=== PATIENT | female | born 1950 | race Caucasian/White ===

== ENCOUNTER 2025-06-30 06:12 | Day surgery (SDC) | payer MEDICARE, BC, SELFPAY ==
[2025-06-30] VITALS (26 sets, daily range): BP systolic 98–150; BP diastolic 49–75; PULSE 66–92; RESP 12–24; TEMP 36.4–37.2; O2SAT 90–99; BMI 23.1
[2025-06-30] MEDS: CELECOXIB 200 MG CAPSULE PO (06:45)
[2025-06-30] MEDS: ACETAMINOPHEN 500 MG TABLET 1000 MG PO ×3 (06:45→20:11)
[2025-06-30] MEDS: SODIUM CHLORIDE 0.9 % (FLUSH) 10 ML SYRINGE IVF (06:45)
[2025-06-30] MEDS: LACTATED RINGERS 1000 ML 1,000 ML 100 ML IV ×2 (06:45→10:00)
[2025-06-30] MEDS: MIDAZOLAM HCL 1 MG/ML inj IVP (07:08)
--- NOTE | 2025-06-30 07:12 | SUR.PREOP ---
TIME?OUT:?0707 PT/RN/MDA?VERIFICATION?OF?SURGICAL?SITE,?PROCEDURE,?AND?CONSENT OBTAINED?PRIOR?TO?INVASIVE?PROCEDURE.
[2025-06-30] MEDS: TRANEXAMIC ACID 100 MG/ML INJ 1000 MG IV (07:42)
--- NOTE | 2025-06-30 09:15 | CRLHL7_ITS ---
For Patients: As a result of the Cures Act, medical imaging exams and procedure reports are released immediately into your electronic medical record. You may view this report before your referring provider. If you have questions, please contact your health care provider. Indication: post op right TSA Technique: Two views right shoulder Findings/Impression: Hardware from a right shoulder arthroplasty is in satisfactory position. Bone alignment is normal. No sign of acute fracture. Postop changes are within normal limits. Dictated by Salazar Sosa MD @ 07/01/2025 12:23:03 PM (Electronically Signed)
--- NOTE | 2025-06-30 09:18 | P.ORPRC_ITS ---
Procedure Note Date of procedure: 06/30/25 Procedure: PREOPERATIVE DIAGNOSIS: Right shoulder rotator cuff tear arthropathy POSTOPERATIVE DIAGNOSIS: Right shoulder rotator cuff tear arthropathy NAME OF OPERATION: Right upper extremity reverse shoulder arthroplasty, biceps tenodesis SURGEON: Ibrhaima Lerner MD TAPPING MACHINE OPERATOR: Rose Marie Mitchell PA-C ANESTHESIA: General endotracheal ESTIMATED BLOOD LOSS: 100 mL COMPLICATIONS: None SPECIMENS: None DRAINS: None PREOPERATIVE ANTIBIOTICS: Ancef 1 grams IMPLANTS: 1. Tornier 29 mm x 35 mm baseplate 2. 36mm standard glenosphere 3. 5B humeral stem 4. High eccentric +0 humeral tray 5. 36mm +9 polyethylene INDICATIONS: The patient is a 74-year-old with a longstanding history of severe, unrelenting right shoulder pain secondary to rotator cuff tear arthropathy. Despite appropriate nonoperative management, including activity modification, anti-inflammatories, tjqs-hll-[id number] pain medication, physical therapy, and injections they continue to have pain and disability. Operative intervention was offered. The risks, benefits and expected outcomes were discussed in detail. These included but were not limited to: Infection, bleeding, injury to blood vessel or nerve, venous thromboembolism. All questions were answered to their satisfaction. Use of an assistant professor of business was necessary throughout the case for patient positioning and safety, soft tissue retraction, and closure. PROCEDURE: General anesthesia was administered. The patient was placed in the lazy beach chair position on the operating room table. The right upper extremity was prepped and draped in the usual sterile fashion. A standard deltopectoral incision was made. Subcutaneous dissection was taken with electrocautery to the deltopectoral interval. The cephalic vein was mobilized, lateral branches were cauterized. The vein was taken medially with the pectoralis. We bluntly entered the deltopectoral interval. We freed up the deltoid. The upper 1/3 of the insertion of the pectoralis was divided with cautery. The static retractor was placed. The clavipectoral fascia and CA ligament were divided. The circumflex vessels were controlled with electrocautery. The biceps was dissected out of the bicipital groove, was tagged with a #2 FiberWire suture and divided proximally. A fiberWire suture was placed in the subscapularis. The subscap was subperiosteally elevated off of the lesser tuberosity. The humeral head was delivered into the wound. The intramedullary humeral cutting guide was placed. We made the cut at the anatomic neck, in 30? of retroversion. Humeral sounds were used to assess the diameter of the canal. The broach was placed and had good rotational stability. The calcar reamer was used and the protective base plate cover was placed. Attention was then turned to the glenoid. Hohmann retractors were placed p osteriorly. The labrum and biceps stump were sharply debrided. The origin of the inferior glenohumeral ligaments were subperiosteally released off of the glenoid. The drill guide was placed. The guide pin was placed in 0? of cephalic tilt. The reamer was used to bleeding bone. The central drill was used x2. The standard base plate was placed. This had excellent purchase. Locking screws x 2 were placed. The glenosphere was placed, the set screw was tightened. Attention then returned to the humerus. We placed a high eccentric standard base plate and standard poly. We reduced the shoulder and took it through a range of motion. It was found to be stable with appropriate soft tissue tension. Trial humeral components were removed. The biceps was tenodesed in the bicipital groove with drill holes and our previously placed FiberWire suture. We placed #2 FiberWire sutures in the lesser tuberosity for subsequent subscap repair. We assembled the humeral component on the back table. We placed it in the center of our subscapularis repair sutures and tapped it down to our humeral cut. This had excellent purchase. The shoulder was reduced and again was found to be stable with appropriate soft tissue tension. We did a 3 min dilute Betadine solution soak. We irrigated the wound with 3 L of normal saline via pulse lavage. We repaired the subscapularis to the lesser tuberosity with our previously placed FiberWire sutures. The deltopectoral interval was loosely reapproximated with an 0 Vicryl in an interrupted [id number] fashion. Subcutaneous tissues were closed with the 2-0 Vicryl and a running 3-0 Monocryl suture. The skin was sealed with glue. A dry dressing and sling were applied. Sponge and needle counts were correct x2. The patient tolerated the procedure well, there were no apparent complications. They were awakened and extubated in the operating room, taken to the postanesthesia care unit in satisfactory condition. PLAN: The patient will be mobilized with physical therapy. The sling will be used for 6 weeks postoperatively. Active range of motion in forward flexion and abduction as tolerates. No external rotation greater than 0? for 6 weeks postoperatively. They will be discharged to home once medically appropriate.
--- NOTE | 2025-06-30 10:06 | SUR.PHASEI ---
Patient came to PACU wearing sling. Patient denies pain and nausea. She is able to wiggle her fingers and feels touch.
--- NOTE | 2025-06-30 10:08 | SUR.PHASEI ---
Patient vitals signs stable throughout Phase I. She is awake and answering questions, declines ice chips when offered. Patient meets discharge criteria from PACU.
--- NOTE | 2025-06-30 10:13 | P.NB_ITS ---
Nerve Block Nerve Block Time Seen by Provider: 07:10 Date Seen: 06/30/25 Type of block requested by surgeon for post-operative analgesia: supraclavicular Side: right Time out performed: Yes Verification of patient name: Yes Verification of date of : Yes Site marking: site marked Name of person performing procedure: Demetrius Continuous monitoring Was continuous monitoring of O2 sat, B/P, color television console monitor, recorded every 15 minutes?: Yes Procedure Checklist: sterile prep, needles and gloves Ultrasound guided. Images saved: Yes Medications given in 5ml increments after negative aspiration: Marcaine %: 0.25 mL: 5 and Exparel mL: 10 Needle gauge: 22 Patient tolerated procedure well: Yes Block Charges Block Charge (with Pro Fee): Brachial Plexus Use of Ultrasound Machine for Block: Yes- US Guidance/pain block
--- NOTE | 2025-06-30 10:14 | P.ANES_ITS ---
Anesthesia Charges Start Date/Time Anesthesia Start Date: 06/30/25 Anesthesia Start Time: 07:18 Stop Date/Time Anesthesia Stop Date: 06/30/25 Anesthesia Stop Time: 09:40 Summary Extremes of Age - Over 70 or under 1: MDA Coding CPT Codes CPT Codes: ANESTH SHOULDER REPLACEMENT - 37201 ([id number]) P3 - PATIENT W/SEVERE SYS DISEASE, QK - CLOTH PRINTER HELPER 2-4 CNCRNT ANES PROC, QX - COLLEGE SPORTS COACH SVC W/ MD MED DIRECTION Additional Codes: Summary - Extremes of Age - Over 70 or under 1: MDA ([id number])
--- NOTE | 2025-06-30 10:14 | W.ANESCHARGE ---
Anesthesia Charges Start Date/Time Anesthesia Start Date: 06/30/25 Anesthesia Start Time: 07:18 Stop Date/Time Anesthesia Stop Date: 06/30/25 Anesthesia Stop Time: 09:40 Summary Extremes of Age - Over 70 or under 1: MDA Coding CPT Codes CPT Codes: ANESTH SHOULDER REPLACEMENT - 91423 ([id number]) P3 - PATIENT W/SEVERE SYS DISEASE, QK - CABLE TECHNICIAN 2-4 CNCRNT ANES PROC, QX - PREFORMING MACHINE OPERATOR SVC W/ MD MED DIRECTION Additional Codes: Summary - Extremes of Age - Over 70 or under 1: MDA ([id number])
--- NOTE | 2025-06-30 10:50 | P.ANES_ITS ---
Anesthesia Charges Start Date/Time Anesthesia Start Date: 06/30/25 Anesthesia Start Time: 07:18 Stop Date/Time Anesthesia Stop Date: 06/30/25 Anesthesia Stop Time: 09:40 Summary Extremes of Age - Over 70 or under 1: COMPUTER PROGRAMMER CHIEF Coding CPT Codes CPT Codes: ANESTH SHOULDER REPLACEMENT - 76673 ([id number]) P3 - PATIENT W/SEVERE SYS DISEASE, QX - COMPUTER PROGRAMMER CHIEF SVC W/ MD MED DIRECTION, QK - TAX LAWYER 2-4 CNCRNT ANES PROC Additional Codes: Summary - Extremes of Age - Over 70 or under 1: COMPUTER PROGRAMMER CHIEF ([id number])
--- NOTE | 2025-06-30 10:50 | W.ANESCHARGE ---
Anesthesia Charges Start Date/Time Anesthesia Start Date: 06/30/25 Anesthesia Start Time: 07:18 Stop Date/Time Anesthesia Stop Date: 06/30/25 Anesthesia Stop Time: 09:40 Summary Extremes of Age - Over 70 or under 1: TIP LENGTH CHECKER Coding CPT Codes CPT Codes: ANESTH SHOULDER REPLACEMENT - 89947 ([id number]) P3 - PATIENT W/SEVERE SYS DISEASE, QX - TIP LENGTH CHECKER SVC W/ MD MED DIRECTION, QK - FISCAL OFFICER 2-4 CNCRNT ANES PROC Additional Codes: Summary - Extremes of Age - Over 70 or under 1: TIP LENGTH CHECKER ([id number])
[2025-06-30] MEDS: CEFAZOLIN 1 GM in 0.9 % SODIUM CHLORIDE Mini-bag 100 ML IVPB ×2 (14:06→21:53)
[2025-06-30] MEDS: OMEPRAZOLE 20 MG CAPSULE DR 40 MG PO (17:55)
--- NOTE | 2025-06-30 18:13 | PC.NURSE ---
End of shift: Patient pleasant and cooperative. Patient vitally stable, lungs clear, BS WNL, IV running LR at 75. Patient denies pain, scheduled tylenol given. Patient's right arm is in a sling, shoulder dressing is C/D/I. Active ice used.Patient voided once and is up in chair for dinner. Patient tolerating regular diet.
--- NOTE | 2025-06-30 18:30 | P.IMCN_ITS ---
Date of Consult Patient: Jamie Patient Consult date: 06/30/25 Requesting Physician: Orthopedics Primary Care Provider: Mallorie Nam MD Consult Narrative Narrative: Saige Cerda is a 74 year old female admitted to the hospital for right shoulder arthroplasty. Procedure performed by Dr. Lerner today. He request consultation for management of medical problems. No operative complications. Estimated 100 mL blood loss. Postoperatively she reports feeling fine. She currently has an affective block and has a having no sensation in her right upper extremity. She has had relative hypotension when I see her with a blood pressure of 93/55 and 98/49. She did not have hypotension in the operating room. She does have hypertension but has not had her valsartan today. She had amlodipine last night. She does have a history of recurrent pulmonary embolism and is on chronic Xarelto 10 mg daily which was held for the last 3 days. She has had no previous problems with surgery, hemorrhage, adverse reaction to anesthesia. Preoperatively she was feeling well. No recent health concerns, illness or injury. Review of Systems Narrative: Negative review of systems. [facility] Medical History (Updated 06/30/25 @ 18:45 by Calos uBckley MD) Sacral neurostimulator in situ ?Z96.82 - Presence of neurostimulator (ICD-10) PONV (postoperative nausea and vomiting) ?R11.2 - Nausea with vomiting, unspecified (ICD-10) ?Z98.890 - Other specified postprocedural states (ICD-10) Adjustment disorder with depressed mood ?F43.21 - Adjustment disorder with depressed mood (ICD-10) Vivid dream ?R68.89 - Other general symptoms and signs (ICD-10) Diverticulosis ?K57.90 - Diverticulosis of intestine, part unspecified, without perforation or abscess without bleeding (ICD-10) Overactive bladder ?N32.81 - Overactive bladder (ICD-10) OLIMPIA (generalized anxiety disorder) ?F41.1 - Generalized anxiety disorder (ICD-10) Degenerative tear of glenoid labrum of right shoulder ?M24.111 - Other articular cartilage disorders, right shoulder (ICD-10) Tendonitis of left rotator cuff ?M75.82 - Other shoulder lesions, left shoulder (ICD-10) Arthritis of right glenohumeral joint ?M19.011 - Primary osteoarthritis, right shoulder (ICD-10) Atrophy of muscle of left thigh ?M62.552 - Muscle wasting and atrophy, not elsewhere classified, left thigh (ICD-10) Subacromial impingement of left shoulder ?M75.42 - Impingement syndrome of left shoulder (ICD-10) Tendinitis of right rotator cuff ?M75.81 - Other shoulder lesions, right shoulder (ICD-10) Primary osteoarthritis of both wrists ?M19.031 - Primary osteoarthritis, right wrist (ICD-10) ?M19.032 - Primary osteoarthritis, left wrist (ICD-10) Scoliosis of thoracic spine ?M41.9 - Scoliosis, unspecified (ICD-10) Personal history of colonic polyps ?Z86.0100 - Personal history of colon polyps, unspecified (ICD-10) Tongue thrusting ?K14.8 - Other diseases of tongue (ICD-10) Eosinophilic esophagitis ?K20.0 - Eosinophilic esophagitis (ICD-10) Subjective tinnitus ?H93.19 - Tinnitus, unspecified ear (ICD-10) Sensorineural hearing loss, bilateral ?H90.3 - Sensorineural hearing loss, bilateral (ICD-10) 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 in situ, unspecified (ICD-10) Chronic embolism and thrombosis of other specified deep vein of left lower extremity ?I82.592 - Chronic embolism and thrombosis of other specified deep vein of left lower extremity (ICD-10) DVT (deep venous thrombosis) ?I82.409 - Acute embolism and thrombosis of unspecified deep veins of unspecified lower extremity (ICD-10) Pulmonary embolism ?I26.99 - Other pulmonary embolism without acute cor pulmonale (ICD-10) Anxiety ?F41.9 - Anxiety disorder, unspecified (ICD-10) Osteoarthritis ?M19.90 - Unspecified osteoarthritis, unspecified site (ICD-10) Scoliosis ?M41.9 - Scoliosis, unspecified (ICD-10) Osteoporosis ?M81.0 - Age-related osteoporosis without current pathological fracture (ICD- 10) Urge incontinence of urine ?N39.41 - Urge incontinence (ICD-10) GERD (gastroesophageal reflux disease) ?K21.9 - Gastro-esophageal reflux disease without esophagitis (ICD-10) High blood pressure ?I10 - Essential (primary) hypertension (ICD-10) COPD (chronic obstructive pulmonary disease) ?J44.9 - Chronic obstructive pulmonary disease, unspecified (ICD-10) Surgical History (Updated 06/30/25 @ 18:42 by Calos Buckley MD) Status post replacement of right shoulder joint ?Z96.611 - Presence of right artificial shoulder joint (ICD-10) 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) ?Z96.642 - Presence of left artificial hip joint (ICD-10) H/O dilation and curettage ?Z98.890 - Other specified postprocedural states (ICD-10) History of cataract surgery ?Z98.49 - Cataract extraction status, unspecified eye (ICD-10) History of removal of breast implant ?Z98.86 - Personal history of breast implant removal (ICD-10) H/O breast augmentation ?Z98.82 - Breast implant status (ICD-10) History of open reduction and internal fixation (ORIF) procedure ?Z98.890 - Other specified postprocedural states (ICD-10) H/O esophagogastroduodenoscopy ?Z98.890 - Other specified postprocedural states (ICD-10) History of surgery ?Z98.890 - Other specified postprocedural states (ICD-10) Status post right foot surgery ?Z98.890 - Other specified postprocedural states (ICD-10) History of right hip replacement (07/18/20) ?Z96.641 - Presence of right artificial hip joint (ICD-10) History of left hip replacement ?Z96.642 - Presence of left artificial hip joint (ICD-10) Family History Mother Cerebral aneurysm Stroke Father Myocardial infarction Pacemaker High blood pressure COPD (chronic obstructive pulmonary disease) Brother History of heart artery stent Sister High blood pressure Social History (Updated 06/30/25 @ 18:38 by Calos Buckley MD) Narrative: She lives in [place]. Her sister, a retired nurse, lives nearby. Her daughter, Ignacia, is healthcare power of immigration attorney. Code status is full for witnessed arrest only. She does not smoke, having quit about 35 years ago with a 45 pack-year history. She has 1 alcoholic beverage per day. What is your current living situation?: I presently have a place to live Problems where you live: no known problems In the past 12 months, utilities in danger of being shut off: no In past 12 months, lack of transportation kept you from medical appts, meetings, work, or getting things needed for daily living: no In the past 12 mos, have been you worried that your food would run out before you had money to buy more?: never true In the past 12 mos, the food you bought just didn't last and you didn't have money to buy more?: never true Highest level of school completed/degree received: don't know Smoking Status: Former smoker Do you use any of these nicotine containing products: None Second hand tobacco smoke exposure: No How often do you have a drink containing alcohol: 4 or more times a week Alcohol type: hard liquor How many standard drinks containing alcohol do you have on a typical day: 1 or 2 How often do you have six or more drinks on one occasion: Never AUDIT-C Alcohol total score: 4 Non-prescribed substance use: denies use Caffeine: Yes How often does anyone, including family, friends and others, physically hurt you : never How often does anyone, including family, friends and others, insult or talk down to you: never How often does anyone, including family, friends and others, threaten you with harm: never How often does anyone, including family, friends and others, scream or curse at you: never service: No Meds Home Medications and Allergies Home Medications ?Medication ?Instructions ?Recorded ?Confirmed ?Type cholecalciferol (vitamin D3) 50 50 mcg PO DAILY 06/30/25 History mcg (2,000 unit) tablet esomeprazole magnesium 40 mg 40 mg PO BID 07/08/22 History capsule,delayed release vit C 226 mg-vit E 90 mg-copper 1 cap PO DAILY 2 06/30/25 History 0.8 mg-zinc oxide-lutein 5 mg capsule (PreserVision Lutein) calcium 600 mg (as 1 tab PO QDAY 07/10/2206/30 History carbonate)-vitamin D3 20 mcg (800 unit) tablet qytdvqblvube-lsnaxrqw-hickjwv-folic 1 tab PO QDAY 02/2406/30/25 History acid 400 mcg-vit K1 20 mcg tablet (One-A-Day Women's 50 Plus) rivaroxaban 10 mg tablet 10 mg PO QDAY 07/10/2206/30 History amlodipine 5 mg tablet 5 mg PO DAILY 04/27/2506/30 History desvenlafaxine succinate 50 mg 50 mg PO DAILY 04/27/25 06/30/25 History tablet,extended release 24 hr trazodone 100 mg tablet 100 mg PO QHS 05/09/2506/30 History hydrocodone 5 mg-acetaminophen 325 1 tab PO Q4-6H PRN pain #30 tabs 06/30/25 Rx mg tablet sennosides 8.6 mg tablet (Senna 17.2 mg (2 x 8.6 mg) P O BID PRN 06/30/25 Rx Lax) constipation #100 tabs valsartan 160 mg tablet 160 mg PO DAILY #30 tabs 06/30/25 Rx Allergies Allergy/AdvReac Type Severity Reaction Status Date / Time alendronate sodium Allergy Verified 06/30/25 06:31 azithromycin Allergy rash Verified 06/30/25 06:31 cephalexin Allergy rash Verified 06/30/25 06:31 citalopram Allergy Insomnia Verified 06/30/25 06:31 ephedrine Allergy Verified 06/30/25 06:31 oxycodone Allergy Confusion Verified 06/30/25 06:31 propoxyphene Allergy Verified 06/30/25 06:31 umeclidinium Allergy Verified 06/30/25 06:31 Exam Narrative: Exam Narrative: She is alert and appears in no distress. Oropharynx is normal. Neck is supple without mass or adenopathy. Respirations are clear to auscultation. Diminished breath sounds. No wheezing rales or rhonchi. Breathing is unlabored. Cardiovascular: S1, S2, regular rate and rhythm. No tachycardia. No gallop or rub. Abdomen: Bowel sounds active. Abdomen is soft without tenderness or mass. Right upper extremity lacks motion and sensation secondary to her block. She has intact pulses, good capillary refill and no significant edema. Left upper extremities and bilateral lower extremities with normal color motion sensation and pulses. No edema Const: Vital Signs, click to edit/add: Vital Signs - 24 hr 06/30/25 07:03 06/30/25 07:08 06/30/25 07:10 Temperature 98.1 F Pulse Rate 80 66 74 Pulse Rate [Right Pulse Oximeter] Respiratory Rate 16 16 16 Blood Pressure 133/73 132/65 128/59 L Blood Pressure [Le ft Arm] Pulse Oximetry 98 99 95 Oxygen Delivery Me od Room Air Room Air Room Air 06/30/25 07:15 06/30/25 09:37 06/30/25 09:40 Temperature 97.5 F L Pulse Rate 69 91 90 Pulse Rate [Right Pulse Oximeter] Respiratory Rate 16 24 16 Blood Pressure 116/63 150/75 H 143/63 H Blood Pressure [Le ft Arm] Pulse Oximetry 99 93 94 Oxygen Delivery Me od Room Air Room Air 06/30/25 09:45 06/30/25 09:50 06/30/25 09:55 Temperature Pulse Rate 86 84 79 Pulse Rate [Right Pulse Oximeter] Respiratory Rate 22 22 16 Blood Pressure 140/69 H 130/63 141/64 H Blood Pressure [Le ft Arm] Pulse Oximetry 92 90 91 Oxygen Delivery Me od Room Air 06/30/25 10:00 06/30/25 10:05 06/30/25 10:10 Temperature 97.5 F L Pulse Rate 77 76 78 Pulse Rate [Right Pulse Oximeter] Respiratory Rate 16 22 16 Blood Pressure 137/61 134/61 125/57 L Blood Pressure [Le ft Arm] Pulse Oximetry 92 92 93 [facility] 06/30/25 10:22 06/30/25 10:30 06/30/25 10:45 Temperature 97.6 F 97.5 F L 97.9 F Pulse Rate 76 71 68 Pulse Rate [Right Pulse Oximeter] Respiratory Rate 14 14 12 Blood Pressure 130/55 L 128/58 L 122/53 L Blood Pressure [Le ft Arm] Pulse Oximetry 90 91 90 Oxygen Delivery [facility] Room Air Room Air Room Air 06/30/25 11:00 06/30/25 11:15 06/30/25 11:45 Temperature 97.8 F 98.1 F 98.1 F Pulse Rate 71 69 Pulse Rate [Right Pulse Oximeter] 78 Respiratory Rate 12 12 12 Blood Pressure 121/54 L 118/51 L Blood Pressure [Le ft Arm] 114/59 L Pulse Oximetry 92 92 90 Oxygen Delivery Me od Room Air Room Air Room Air 06/30/25 12:15 06/30/25 13:05 06/30/25 14:51 Temperature 98 F 98.5 F 98.5 F Pulse Rate Pulse Rate [Right Pulse Oximeter] 72 78 92 Respiratory Rate 12 14 18 Blood Pressure Blood Pressure [Le ft Arm] 109/53 L 113/56 L 98/49 L Pulse Oximetry 92 92 93 Oxygen Delivery Me thod Room Air Room Air Room Air 06/30/25 15:00 06/30/25 16:04 06/30/25 16:04 Temperature 99 F Pulse Rate Pulse Rate [Right Pulse Oximeter] 87 87 Respiratory Rate 14 14 Blood Pressure Blood Pressure [Le ft Arm] 110/52 L 105/56 L Pulse Oximetry 94 Oxygen Delivery Me thod Room Air 06/30/25 16:04 Temperature Pulse Rate Pulse Rate [Right Pulse Oximeter] Respiratory Rate 14 Blood Pressure Blood Pressure [Le ft Arm] Pulse Oximetry 94 Oxygen Delivery Me thod Room Air Documenting provider has reviewed patient's vital signs: yes Assessment and Plan Assessment and plan (1) Postoperative hypotension: Problem comment: Briefly placed in Trendelenburg with blood pressure improving. Check CBC in a.m. or sooner if recurrent hypotension. Hold blood pressure medications. Resume home blood pressure medicines at lower dose tomorrow and outpatient follow-up for recheck of blood pressure and medications in 1-2 weeks if doing w ell Status: Acute (2) Status post replacement of right shoulder joint: Problem comment: 06/30/2025, Dr. Lerner Status: Acute (3) Pulmonary embolism: Problem comment: 09/2016, 02/2018. On lifelong rivaroxaban 10 mg daily. Resume tomorrow Status: Acute Plan 74-year-old female admitted to the hospital for right shoulder arthroplasty. Anticipate routine management of pain and therapy. Continue to observe for recurrent episodes of hypotension. Resume anticoagulation for history of recurrent PE. Total Time Spent Total Time Spent: Total time spent today is 40 minutes in reviewing outside records, coordination of care, discussion with patient ongoing evaluation and management of hypotension, history of pulmonary embolism following surgery.
[2025-06-30] MEDS: TRAZODONE HCL 50 MG TABLET 100 MG PO (21:52)
[2025-06-30] MEDS: SENNOSIDES 1 TAB TABLET 2 TAB PO (21:52)
[2025-07-01] MEDS: ACETAMINOPHEN 500 MG TABLET 1000 MG PO ×2 (02:39→08:38)
[2025-07-01 02:50] VITALS: BP 111/63; PULSE 84; RESP 17; TEMP 36.7; O2SAT 94
[2025-07-01] MEDS: OMEPRAZOLE 20 MG CAPSULE DR 40 MG PO (06:30)
--- NOTE | 2025-07-01 06:34 | PC.NURSE ---
Pt is alert and oriented. Denies pain, but taking scheduled Tylenol and using ice packs. Pt is standby assist.
[2025-07-01 06:42] LABS: Hematocrit* 33.0 % (33.0-51.0); Hemoglobin* 10.7 gm/dL (12.0-16.0); Immature Granulocytes Abs Auto 0.01 K/uL (0.00-0.30); Immature Granulocytes Pct Auto 0.1 %; Mean Corpuscular HGB Conc 32 gm/dL (32-36); Mean Corpuscular Hemoglobin 31 pg (26-34); Mean Corpuscular Volume 94 fL (80-100); RDW Coefficient of Variation % 13.9 % (11.5-15.5); Red Blood Count* 3.50 m/uL (4.00-5.20); White Blood Count* 8.71 K/uL (4.50-11.00)
[2025-07-01 06:43] LABS: Lymphocytes Absolute Auto 1.50 K/uL (0.90-2.90); Slide Review Reflex No
[2025-07-01 07:00] VITALS: O2SAT 93
[2025-07-01 07:40] VITALS: BP 121/57; PULSE 74; RESP 16; TEMP 36.7; O2SAT 93
[2025-07-01] MEDS: DESVENLAFAXINE SUCCINATE ER 50 MG TAB PO (08:39)
[2025-07-01] MEDS: SENNOSIDES 1 TAB TABLET 2 TAB PO (08:40)
[2025-07-01] MEDS: RIVAROXABAN 10 MG TABLET PO (08:40)
--- NOTE | 2025-07-01 08:47 | P.ORPN_ITS ---
Subjective Subjective Time Seen by Provider: 07:30 Date Seen: 07/01/25 Principal diagnosis: Status post right reverse total shoulder arthroplasty Interval history: Prep is comfortable this morning. She is regaining sensation in her right fi ngers and has movement in her wrist. She will discharge to home today. Ortho Exam Narrative Exam Narrative: Alert and oriented x3. Patient is in no acute distress. Converses without labored breathing. Hearing is grossly intact. Ambulates with a normal gait. Examination of the right shoulder shows the dressing is intact. Mild soft tissue edema of the shoulder. Mild ecchymosis. Sensation is returning in the fingers. She is able to flex and extend her wrist and perform thumbs up. Radial and ulnar pulses normal 2+. No edema about the hand or forearm. Const Vital Signs, click to edit/add: Vital Signs - 24 hr 06/30/25 09:37 06/30/25 09:40 06/30/25 09:45 Temperature 97.5 F L Pulse Rate 91 90 86 Pulse Rate [Right Pulse Oximeter] Respiratory Rate 24 16 22 Blood Pressure 150/75 H 143/63 H 140/69 H Blood Pressure [Left Arm] Pulse Oximetry 93 94 92 Oxygen Delivery Method Room Air 06/30/25 09:50 06/30/25 09:55 06/30/25 10:00 Temperature Pulse Rate 84 79 77 Pulse Rate [Right Pulse Oximeter] Respiratory Rate 22 16 16 Blood Pressure 130/63 141/64 H 137/61 Blood Pressure [Left Arm] Pulse Oximetry 90 91 92 Oxygen Delivery Method Room Air 06/30/25 10:05 06/30/25 10:10 06/30/25 10:22 Temperature 97.5 F L 97.6 F Pulse Rate 76 78 76 Pulse Rate [Right Pulse Oximeter] Respiratory Rate 22 16 14 Blood Pressure 134/61 125/57 L 130/55 L Blood Pressure [Left Arm] Pulse Oximetry 92 93 90 Oxygen Delivery Method Room Air Room Air 06/30/25 10:30 06/30/25 10:45 06/30/25 11:00 Temperature 97.5 F L 97.9 F 97.8 F Pulse Rate 71 68 71 Pulse Rate [Right Pulse Oximeter] Respiratory Rate 14 12 12 Blood Pressure 128/58 L 122/53 L 121/54 L Blood Pressure [Left Arm] Pulse Oximetry 91 90 92 Oxygen Delivery Method Room Air Room Air Room Air 06/30/25 11:15 06/30/25 11:45 06/30/25 12:15 Temperature 98.1 F 98.1 F 98 F Pulse Rate 69 Pulse Rate [Right Pulse Oximeter] 78 72 Respiratory Rate 12 12 12 Blood Pressure 118/51 L Blood Pressure [Left Arm] 114/59 L 109/53 L Pulse Oximetry 92 90 92 Oxygen Delivery Method Room Air Room Air Room Air 06/30/25 13:05 06/30/25 14:51 06/30/25 15:00 Temperature 98.5 F 98.5 F Pulse Rate Pulse Rate [Right Pulse Oximeter] 78 92 Respiratory Rate 14 18 Blood Pressure Blood Pressure [Left Arm] 113/56 L 98/49 L 110/52 L Pulse Oximetry 92 93 Oxygen Delivery Method Room Air Room Air 06/30/25 16:04 06/30/25 16:04 06/30/25 16:04 Temperature 99 F Pulse Rate Pulse Rate [Right Pulse Oximeter] 87 87 Respiratory Rate 14 14 14 Blood Pressure Blood Pressure [Left Arm] 105/56 L Pulse Oximetry 94 94 Oxygen Delivery Method Room Air Room Air 06/30/25 20:00 06/30/25 22:45 06/30/25 23:00 Temperature 97.8 F 97.6 F Pulse Rate Pulse Rate [Right Pulse Oximeter] 83 79 Respiratory Rate 18 18 18 Blood Pressure Blood Pressure [Left Arm] 104/57 L 110/54 L Pulse Oximetry 96 92 92 Oxygen Delivery Method Room Air Room Air Room Air 07/01/25 02:50 07/01/25 07:00 07/01/25 07:40 Temperature 98.0 F 98.0 F Pulse Rate Pulse Rate [Right Pulse Oximeter] 84 74 Respiratory Rate 17 16 Blood Pressure Blood Pressure [Left Arm] 111/63 121/57 L Pulse Oximetry 94 93 93 Oxygen Delivery Method Room Air Room Air Room Air Assessment and Plan Assessment and plan (1) Status post replacement of right shoulder joint: Problem details: 06/30/2025, Dr. Lerner Status: Acute Assessment and Plan: Sling is adjusted. Plan for discharge is to home when they meet discharge criteria. Patient will wear the sling for 6 weeks post surgery. They can take it off for comfort and for exercises. Activity: no external rotation of the operative shoulder past 0? x 6 weeks. Forward flexion and abduction of the shoulder is allowed as tolerated. They will work on range of motion of the elbow, wrist, fingers once the block has wore off on the operative extremity. Patient will attend outpatient physical therapy for the operative shoulder . For discharge, oxycodone and Tylenol for pain. Do not drive while on narcotic pain medication. Drive only when safe to do so, when they have normal use/function of the upper extremity, this will likely take 6 weeks. Patient will minimize and discontinue the narcotic as soon as possible. Remove dressing in 1 week. Dressing is waterproof. May shower. Surgical glue covers the wound. Do not scrub the wound. Expect swelling and bruising about the shoulder and upper extremity. Use of ice/active ice without restriction. Notify Orthopedics if swelling is excessive. notify Orthopedics with any questions or concerns. [phone] Return to Orthopedic clinic next week for a wound check Return to clinic in [address] Lerner.
--- NOTE | 2025-07-01 10:36 | PC.NURSE ---
Pt doing well today. VSS. Denies pain. Ambulating independently, tolerating well. Pt discharged home at 1020 via daughter. Pt belongings and discharge information signed.
== END 2025-07-01 10:20 | disposition home or self-care (01) ==
LOC: OR 06:14 → MEDSURG 06:14
PROVIDERS: Family Medicine; PCP Internal Medicine; Visit Provider Orthopaedic Surgery
PROC: 0RRJ0JZ Replacement of Right Shoulder Joint with Synthetic Substitute, Open Approach (ICD-10-PCS; CPT 23472; principal; 2025-06-30 07:15)
DX: M75.101 Unspecified rotator cuff tear or rupture of right shoulder, not specified as traumatic (principal); G89.18 Other acute postprocedural pain; I95.81 Postprocedural hypotension; Z86.711 Personal history of pulmonary embolism; Z86.718 Personal history of other venous thrombosis and embolism; Z79.01 Long term (current) use of anticoagulants; I10 Essential (primary) hypertension
CPT/HCPCS: 23472; 23430; 01638; 36415; 64415; 73030; 76942; 85025; 97110; 97165; 97530; 99100; A9270; C1713; C1776; J0665; J0666; J0690; J1100; J2250; J2405; J2704; J3010; J3490; J7120